=== PATIENT | female | born 1980 | race Caucasian/White ===

== ENCOUNTER 2017-04-28 04:49 | Emergency (ER) | payer OTHER ==
[2017-04-28 04:55] VITALS: BP 134/82
[2017-04-28] MEDS ORDERED: Penicillin VK TAB* 250 MG PO ONE (05:32)
--- NOTE | 2017-04-28 05:49 | ED ---
Angel Luis Bonilla Thomas, scribed for Washington Vora MD on 04/28/17 at 0507 . Throat Pain/Nasal Congestion - HPI Summary HPI Summary: The pt is a 36 y/o F presenting to the ED c/o R upper dental pain that began two days ago. Prior to the ED visit, the pt has taken 200 mg acetaminophen, 100mg ibuprofen, applied Orajel, and has gargled salt water. The pt does not have a dentist. Allergic to Naproxen and Percocet. - History of Current Complaint Chief Complaint: EDDentalPain Hx Obtained From: Patient Onset/Duration: Lasting Days - 2 days ago, Still Present Severity: Severe - Allergies/Home Medications Allergies/Adverse Reactions: Allergies Allergy/AdvReac Type Severity Reaction Status Date / Time Acetaminophen [From Percocet] Allergy Hives Verified 04/28/17 04:51 Naproxen [From Naprosyn] Allergy Swelling Verified 04/28/17 04:51 Oxycodone [From Percocet] Allergy Hives Verified 04/28/17 04:51 PMH/Surg Hx/FS Hx/Imm Hx Previously Healthy: Yes Endocrine/Hematology History: Denies: Hx Diabetes Cardiovascular History: Denies: Hx Congestive Heart Failure, Hx Hypertension History: Denies: Hx Renal Disease - Surgical History Surgery Procedure, Year, and Place: TUBAL LIGATION MARCH 2015 Infectious Disease History: No Infectious Disease History: Denies: Traveled Outside the [place] in Last 30 Days - Family History Known Family History: Positive: Hypertension, Diabetes - Social History Alcohol Use: Occasionally Substance Use Type: Reports: None Smoking Status (MU): Light Every Day Tobacco Smoker Review of Systems Constitutional: Negative Eyes: Negative Positive: Dental Pain Cardiovascular: Negative Respiratory: Negative Gastrointestinal: Negative Genitourinary: Negative Musculoskeletal: Negative Skin: Negative Neurological: Negative Psychological: Normal All Other Systems Reviewed And Are Negative: Yes Physical Exam Triage Information Reviewed: Yes Vital Signs On Initial Exam: Initial Vitals Temp Pulse Resp BP Pulse Ox 98.3 F 69 18 134/82 99 04/28/17 04:52 04/28/17 04:52 04/28/17 04:52 04/28/17 04:52 04/28/17 04:52 Vital Signs Reviewed: Yes Appearance: Positive: Well-Appearing, Pain Distress - mild discomfort Skin: Positive: Warm Head/Face: Positive: Normal Head/Face Inspection Eyes: Positive: KAREN ENT: Positive: Hearing grossly normal Dental: Positive: Gross Decay/Caries @, Other - generalized decay with fx teeth , gingivitis Respiratory/Lung Sounds: Positive: Breath Sounds Present Neurological: Positive: Alert, Oriented to Person Place, Time Diagnostics - Vital Signs Vital Signs Temp Pulse Resp BP Pulse Ox 04/28/17 04:52 98.3 F 69 18 134/82 99 - Laboratory Lab Statement: Any lab studies that have been ordered have been reviewed, and results considered in the medical decision making process. EENT Course/Dx - Diagnoses Provider Diagnoses: Pain, dental Discharge - Discharge Plan Condition: Stable Disposition: HOME Prescriptions: Penicillin VK TAB* [Penicillin VK 250 mg Tab*] 250 mg PO QID #30 tab Patient Education Materials: Toothache (ED) Forms: *Work Release Referrals: Phillip Louis MD [Primary Care Provider] - Additional Instructions: Use the provided information to find a dentist and schedule an appointment. The documentation as recorded by the Angel Luis schuster Thomas accurately reflects the service I personally performed and the decisions made by Vielka greer David, MD.
== END 2017-04-28 05:51 | disposition home or self-care (01) ==
LOC: ED 04:49
DX: K08.89 Other specified disorders of teeth and supporting structures (principal); F17.210 Nicotine dependence, cigarettes, uncomplicated
CPT/HCPCS: 99281; A9270-GY

== ENCOUNTER 2017-12-22 15:41 | Emergency (ER) | payer OTHER ==
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
[2017-12-22 19:24] VITALS: BP 114/62
== END 2017-12-22 19:23 | disposition home or self-care (01) ==
LOC: ED 15:41
DX: S09.90XA Unspecified injury of head, initial encounter (principal); M54.2 Cervicalgia; M54.5 Low back pain; V48.3XXA Unspecified car occupant injured in noncollision transport accident in nontraffic accident, initial encounter; Y92.9 Unspecified place or not applicable; F17.200 Nicotine dependence, unspecified, uncomplicated
CPT/HCPCS: 70450; 72125; 72131; 99282

== ENCOUNTER 2018-05-10 20:08 | Emergency (ER) | payer OTHER ==
[2018-05-10 20:27] VITALS: BP 108/66
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
--- NOTE | 2018-05-11 10:36 | UC ---
- Progress Note Progress Note: Pt was seen yesterday, 05/10/18, by the YASH Dillon. Pt was discharged yesterday, 05/10/18. As per YASH Dillon, pt will be given a work note today to be off work until May 16, 2018. Discharge - Sign-Out/Discharge Documenting (check all that apply): Patient Departure - Discharge Plan Condition: Stable Disposition: HOME Prescriptions: Cyclobenzaprine TAB* [Flexeril 10 MG TAB*] 10 mg PO BID PRN #20 tab PRN Reason: Pain Patient Education Materials: Lumbar Radiculopathy (ED), Cervical Radiculopathy (ED) Forms: *Work Release Referrals: Pihllip Louis MD [Primary Care Provider] - As Soon As Possible Additional Instructions: If you develop a fever, shortness of breath, chest pain, new or worsening symptoms - please call your PCP or go to the ED. 1) Please follow up with Physical therapy 2) Please call your PCP and follow up regarding your numbness and work status
== END 2018-05-10 22:10 | disposition home or self-care (01) ==
LOC: UCEAST 20:08
DX: M54.2 Cervicalgia (principal); M54.5 Low back pain; R20.0 Anesthesia of skin; M48.061 Spinal stenosis, lumbar region without neurogenic claudication; Z82.49 Family history of ischemic heart disease and other diseases of the circulatory system; Z83.3 Family history of diabetes mellitus; F17.200 Nicotine dependence, unspecified, uncomplicated
CPT/HCPCS: 72125; 72128; 72131; 99212; G0463

== ENCOUNTER 2018-05-22 21:59 | Emergency (ER) | payer SELFPAY ==
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
[2018-05-23 01:56] VITALS: BP 134/78
== END 2018-05-23 01:50 | disposition home or self-care (01) ==
LOC: ED 21:59
DX: M54.2 Cervicalgia (principal); F17.210 Nicotine dependence, cigarettes, uncomplicated
CPT/HCPCS: 99282

== ENCOUNTER 2019-10-18 14:19 | Emergency (ER) | payer SELFPAY ==
[2019-10-18] MEDS ORDERED: Lidocaine PATCH 5%* 1 PATCH TRANSDERM ONE (14:35)
--- NOTE | 2019-10-18 14:39 | ED ---
Upper Extremity Pain - HPI Summary HPI Summary: This patient is a 39 year old female presenting to [facility] with a chief complaint of left shoulder pain. She states movement aggravates the pain and has a burning sensation. Pt stated that it started when she was sleeping 2 days ago. The location of the pain is mostly at the back of the shoulder. - History of Current Complaint Chief Complaint: EDShoulderClavicleInj Stated Complaint: SHOULER INJURY Time Seen by Provider: 10/18/19 14:26 Hx Obtained From: Patient Hx Last Menstrual Period: [id number] Onset/Duration: Started Hours Ago Pain Location: Shoulder Aggravating Factor(s): Movement - Allergies/Home Medications Allergies/Adverse Reactions: Allergies Allergy/AdvReac Type Severity Reaction Status Date / Time adhesive Allergy Rash Verified 10/18/19 14:21 naproxen Allergy Swelling Verified 10/18/19 14:21 oxycodone Allergy Hives Verified 10/18/19 14:21 PMH/Surg Hx/FS Hx/Imm Hx Endocrine/Hematology History: Denies: Hx Anticoagulant Therapy, Hx Diabetes Cardiovascular History: Denies: Hx Congestive Heart Failure, Hx Hypertension History: Denies: Hx Renal Disease - Surgical History Surgery Procedure, Year, and Place: TUBAL LIGATION MARCH 2015 Infectious Disease History: No Infectious Disease History: Denies: Traveled Outside the [place] in Last 30 Days - Family History Known Family History: Positive: Hypertension, Diabetes - Social History Alcohol Use: Weekly Alcohol Amount: 3-4 Substance Use Type: Reports: None Smoking Status (MU): Light Every Day Tobacco Smoker Review of Systems Negative: Fever Positive: Other - Shoulder pain All Other Systems Reviewed And Are Negative: Yes Physical Exam - Summary Physical Exam Summary: Constitutional: Well-developed, Well-nourished, Alert. (-) Distressed Skin: Warm, Dry HENT: Normocephalic; Atraumatic Eyes: Conjunctiva normal Neck: Musculoskeletal ROM normal neck. (-) JVD, (-) Stridor, (-) Tracheal deviation Cardio: Rhythm regular, rate normal, Heart sounds normal; Intact distal pulses; The pedal pulses are 2+ and symmetric. Radial pulses are 2+ and symmetric. (-) Murmur Pulmonary/Chest wall: Effort normal. (-) Respiratory distress, (-) Wheezes, (-) Rales Abd: Soft, (-) tenderness, (-) Distension, (-) Guarding, (-) Rebound Musculoskeletal: (-) Edema Tender over left scapula region. Full ROM at left shoulder. Neurovascularly intact. Lymph: (-) Cervical adenopathy Neuro: Alert, Oriented x3 Psych: Mood and affect Normal Triage Information Reviewed: Yes Vital Signs On Initial Exam: Initial Vitals Temp Pulse Resp BP Pulse Ox 97.8 F 81 16 111/72 99 10/18/19 14:20 10/18/19 14:20 10/18/19 14:20 10/18/19 14:20 10/18/19 14:20 Vital Signs Reviewed: Yes Procedures - Sedation Patient Received Moderate/Deep Sedation with Procedure: No Diagnostics - Vital Signs Vital Signs Temp Pulse Resp BP Pulse Ox 10/18/19 14:20 97.8 F 81 16 111/72 99 - Laboratory Lab Statement: Any lab studies that have been ordered have been reviewed, and results considered in the medical decision making process. - Radiology Left Shoulder XR Radiology Interpretation Completed By: Radiologist Summary of Radiographic Findings: no evidence for fracture. ED Physician has reviewed this report. Course/Dx - Course Course Of Treatment: This patient is a 39 year old female presenting to [facility] with a chief complaint of left shoulder pain. Left shoulder XR revealed no evidence for fracture. Patient will be prescribed lidoderm patch and flexeril. A plan for discharge was discussed with the patient and she was agreeable with this plan. - Diagnoses Provider Diagnoses: Left shoulder pain Discharge ED - Sign-Out/Discharge Documenting (check all that apply): Patient Departure - Discharge - Discharge Plan Condition: Stable Disposition: HOME Patient Education Materials: Shoulder Pain (ED) Referrals: Phillip Louis MD [Primary Care Provider] - 3 Days Additional Instructions: Return to ED with new or worsening symptoms. - Attestation Statements Document Initiated by Scribe: Yes Documenting Scribe: Jose Antonio Baron Provider For Whom Scribe is Documenting (Include Credential): Gilberto Connolly DO Scribe Attestation: Jose Antonio Bonilla, johned for Gilberto Connolly DO on 10/18/19 at 1536. Status of Scribe Document: Ready
[2019-10-18 15:44] VITALS: BP 102/62
[2019-10-18] MEDS ORDERED: Lidocaine Patch REMOVE* 1 NOTE MISC SCH (21:00)
== END 2019-10-18 15:43 | disposition home or self-care (01) ==
LOC: ED 14:19
DX: M25.512 Pain in left shoulder (principal); F17.210 Nicotine dependence, cigarettes, uncomplicated
CPT/HCPCS: 99282; A9270-GY

== ENCOUNTER 2020-01-05 08:30 | Emergency (ER) | payer SELFPAY ==
[2020-01-05] MEDS ORDERED: Clindamycin 600 MG/D5W BAG(*) 600 MG/50 ML BAG IV ONE (08:48)
[2020-01-05] MEDS ORDERED: NS 0.9% 1000 ML** 2,000 ML IV ONE (08:48)
[2020-01-05] MEDS ORDERED: Dexamethasone IV* 4 MG/ML 1 ML (4 MG) IV SLOW PU ONE (08:48)
[2020-01-05] MEDS ORDERED: Ketorolac INJ* 30 MG/ML 1 ML VIAL IV ONE (08:50)
--- NOTE | 2020-01-05 09:13 | ED ---
Throat Pain/Nasal Congestion - HPI Summary HPI Summary: this patient is a 39-year-old female smoker who presents to the ED with left- sided throat pain 2 days. She also endorses a febrile illness at home, sweats and chills. Endorses pain with swallowing, but no difficulty with swallowing. Denies any airway involvement. Denies difficulty with breathing, shortness of breath, chest pain. Denies any maxillary sinus tenderness, ear pain, headache. She does endorse right-sided lower back pain, but denies any urinary symptoms. No gross hematuria. Hx of back pain. No recent illness, cough, or congestion. - History of Current Complaint Chief Complaint: EDThroatPain Time Seen by Provider: 01/05/20 08:41 Hx Obtained From: Patient Onset/Duration: Gradual Onset Severity: Moderate Associated Signs And Symptoms: Negative: Dysphagia, FB Sensation, Drooling, Wheezing, Sinus Discomfort, Nasal Discharge - Epiglottits Risk Factors Epiglottis Risk Factors: Muffled Voice - Allergies/Home Medications Allergies/Adverse Reactions: Allergies Allergy/AdvReac Type Severity Reaction Status Date / Time adhesive Allergy Rash Verified 01/05/20 08:33 naproxen Allergy Swelling Verified 01/05/20 08:33 oxycodone Allergy Hives Verified 01/05/20 08:33 Home Medications: Home Medications Ondansetron ODT TAB* [Zofran 4 MG Odt TAB*] 4 mg PO Q6H PRN #20 tab.odt [Rx Confirmed 05/10/18] Cyclobenzaprine TAB* [Flexeril 10 MG TAB*] 10 mg PO BID PRN #20 tab 05/10/18 [Rx ] Cyclobenzaprine TAB* [Flexeril 10 MG TAB*] 10 mg PO TID PRN #21 tab 05/23/18 [Rx ] Cyclobenzaprine TAB* [Flexeril 10 MG TAB*] 10 mg PO TID PRN 10 Days #30 tab [Rx] Lidocaine PATCH 5%* [Lidoderm 5% Patch*] 1 patch TRANSDERM DAILY PRN 10 Days # 10 patch 10/18/19 [Rx] Clindamycin Cap(NF) [Clindamycin Cap 300 mg Cap(NF)] 300 mg PO Q6H #28 cap 01/04 [Rx] Ketorolac TAB * [Toradol TAB *] 10 mg PO Q6H #16 tab 01/05/20 [Rx] predniSONE 50 mg TAB [Deltasone 50 mg TAB] 50 mg PO DAILY #5 tab MDD 1 01/05/20 [Rx] PMH/Surg Hx/FS Hx/Imm Hx Previously Healthy: Yes Endocrine/Hematology History: Denies: Hx Anticoagulant Therapy, Hx Diabetes Cardiovascular History: Denies: Hx Congestive Heart Failure, Hx Hypertension History: Denies: Hx Renal Disease - Surgical History Surgery Procedure, Year, and Place: TUBAL LIGATION MARCH 2015 - Immunization History Hx Pertussis Vaccination: No Immunizations Up to Date: Yes Infectious Disease History: No Infectious Disease History: Denies: Traveled Outside the [place] in Last 30 Days - Family History Known Family History: Positive: Hypertension, Diabetes - Social History Occupation: Unemployed Lives: With Family Alcohol Use: Weekly Alcohol Amount: 3-4 Hx Substance Use: No Substance Use Type: Reports: None Hx Tobacco Use: Yes Smoking Status (MU): Light Every Day Tobacco Smoker Review of Systems Positive: Fever, Chills, Skin Diaphoresis. Negative: Fatigue Negative: Blurred Vision, Diplopia Positive: Sore Throat. Negative: Dental Pain, Ear Ache Negative: Palpitations, Chest Pain Negative: Shortness Of Breath, Cough Negative: Rash, Bruising All Other Systems Reviewed And Are Negative: Yes Physical Exam Triage Information Reviewed: Yes Vital Signs On Initial Exam: Initial Vitals Temp Pulse Resp BP Pulse Ox 100.1 F 120 18 116/80 100 01/05/20 08:31 01/05/20 08:31 01/05/20 08:31 01/05/20 08:31 01/05/20 08:31 Vital Signs Reviewed: Yes Appearance: Positive: Well-Nourished, Ill-Appearing Skin: Positive: Warm, Skin Color Reflects Adequate Perfusion Head/Face: Positive: Normal Head/Face Inspection Eyes: Positive: EOMI, KAREN, Conjunctiva Clear ENT: Positive: Pharyngeal erythema, Tonsillar swelling, Muffled voice. Negative : Tonsillar exudate, Trismus, Dental tenderness, Sinus tenderness, Uvula midline Neck: Positive: Supple, Tenderness @ - left cervical anterior Respiratory/Lung Sounds: Positive: Clear to Auscultation, Breath Sounds Present Cardiovascular: Positive: RRR, Pulses are Symmetrical in both Upper and Lower Extremities Musculoskeletal: Positive: Normal, Strength/ROM Intact Psychiatric: Positive: Affect/Mood Appropriate AVPU Assessment: Alert Procedures - Sedation Patient Received Moderate/Deep Sedation with Procedure: No Diagnostics - Vital Signs Vital Signs Temp Pulse Resp BP Pulse Ox 01/05/20 08:31 100.1 F 120 18 116/80 100 - Laboratory Result Diagrams: 01/05/20 09:01 Lab Statement: Any lab studies that have been ordered have been reviewed, and results considered in the medical decision making process. EENT Course/Dx - Course Course Of Treatment: On physical examination, patient appears well, but fatigued. Nontoxic in appearing and non-diaphoretic. Airway patent. Vital signs on arrival: 100.1, tachycardic at 120. Patient denies any difficulty with swallowing, however does endorse pain with swallowing. Positive muffled, hot potato voice. Patient has severe unilateral left-sided sore throat. Pharyngeal erythema without tonsilar exudates bilaterally. No bilateral ear pain. No neck stiffness, pain on movement, especially with neck extension to suggest retropharyngeal abscess. No bulging behind the posterior tonsillar pillar to suggest abscess of the parapharyngeal space. No trismus. Patient is given Decadron 10 mg IV, clindamycin 600mg IV, Toradol 30 mg IV and 2 L fluids. On reexamination, patient is feeling much improved. Continues to deny any difficulty with swallowing or airway involvement. No shortness of breath. Labs show elevated WBC at 26.6 and CRP 165.32. Strep positive. iscussed treatment options with patient. Patient would like to trial abx and steroids with f/y to ENT vs. aspiration of abscess. As patient remains stable with no airway compromise and able to eat and drink at bedside, patient is stable at discharge for home. Will f/u with ENT tomorrow unless sxs worsen. - Differential Diagnoses Differential Diagnoses: Other - tonsillitis, abscess, strep throat - Diagnoses Provider Diagnoses: Peritonsillar abscess Discharge ED - Sign-Out/Discharge Documenting (check all that apply): Patient Departure - Discharge Plan Condition: Stable Disposition: HOME Prescriptions: Clindamycin Cap(NF) [Clindamycin Cap 300 mg Cap(NF)] 300 mg PO Q6H #28 cap Ketorolac TAB * [Toradol TAB *] 10 mg PO Q6H #16 tab predniSONE 50 mg TAB [Deltasone 50 mg TAB] 50 mg PO DAILY #5 tab MDD 1 Patient Education Materials: Peritonsillar Abscess (ED), Strep Throat (ED) Referrals: Phillip Louis MD [Primary Care Provider] - Mekhi Barroso MD [Medical Doctor] - Additional Instructions: Prednisone once daily 5 days, start this tomorrow morning Bleomycin 4 times daily 7 days, you may have U next dose at around 3 PM and again this evening Toradol 4 times daily 4 days, next dose is at 2 pm Do not take ibuprofen or other NSAIDs while taking this medication, you may take Tylenol on opposite schedule Call ENT tomorrow morning If any symptoms worsen, return to the ED immediately - Billing Disposition and Condition Condition: STABLE Disposition: Home
[2020-01-05 09:14] LABS: Hematocrit 44 % (35-47); Hemoglobin 14.9 g/dL (12.0-16.0); Mean Corpuscular HGB Conc 34 g/dL (31-36); Mean Corpuscular Hemoglobin 31 pg (27-31); Mean Corpuscular Volume 93 fL (80-97); Mean Platelet Volume 8.6 fL (7.4-10.4); Platelet Count 267 10^3/uL (150-450); Red Blood Count 4.75 10^6 /uL (3.70-4.87); Red Cell Distribution Width 13 % (10-15); White Blood Count 26.6 10^3/uL (3.5-10.8)
[2020-01-05 09:23] LABS: Rapid Strep Molecular Positive (Negative)
[2020-01-05 09:53] LABS: ABS Lymphocytes 1.3 10^3/ul (1.0-4.8); ABS Monocytes 1.2 10^3/ul (0-0.8); ABS Neutrophils 23.9 10^3/ul (1.5-7.7); Eosinophil % 0.1 %; Lymphocyte % 5.1 %
[2020-01-05 11:41] VITALS: BP 110/70
== END 2020-01-05 11:40 | disposition home or self-care (01) ==
LOC: ED 08:30
DX: J36 Peritonsillar abscess (principal); Z79.52 Long term (current) use of systemic steroids; R50.9 Fever, unspecified; F17.210 Nicotine dependence, cigarettes, uncomplicated
CPT/HCPCS: 36415; 83605; 85025; 86140; 87040; 87651; 96361; 96374; 96375; 99282; J1100; J1885